=== PATIENT | female | born 1945 | race Caucasian/White ===

== ENCOUNTER 2016-11-04 08:42 | Emergency (ER) | payer OTHER ==
[2016-11-04 08:47] VITALS: BP 166/71
--- NOTE | 2016-11-04 09:19 | PROVIDER DOCUMENTATION ---
HPI-Musculoskeletal Pain/Inj - GENERAL Chief Complaint: Fall Stated Complaint: FALL Time Seen by Provider: 11/04/16 09:04 Source: patient - HX OF PRESENT ILLNESS-MUSKULOSKELTAL Nature of Presenting Problem: 70 y/o WF c/o fall at 0700 today where she was gathering things near her coffee table, and fell backwards, hitting the left ribs on a stool. States they have been painfuls since then. Has ultram at home, but did not take them. Denies difficultly breathing or sob. Denies hitting head or neck, no loc. patient is taking Xarelto. Denies injuries to other areas, ambulatory. Quality of Pain: reports: aching Severity in ED: mild Onset/Duration: 1-3 hours ago Timing: still present Modifying Factors: improves with: nothing (has nto tried anything,), movement ( worse, with deep breath) Any recent injury?: Yes Locality of Occurance: Home Similar Symptoms Previously?: No Recently seen or treated by another doctor?: No Review of Systems - Adult - REVIEW OF SYSTEMS - ADULT Constitutional: reports: no symptoms reported. denies: chills, fatique Eyes: reports: no symptoms reported. denies: decreased vision, blurred vision, double vision, eye pain Ears, Nose, Mouth & Throat: reports: no symptoms reported. denies: ear pain, nose pain, throat pain Cardiovascular: reports: no symptoms reported. denies: chest pain, palpitations Respiratory: reports: no symptoms reported. denies: cough, shortness of breath , wheezing Gastrointestinal: reports: no symptoms reported. denies: abdominal pain, diarrhea, nausea, vomiting Genitourinary: reports: no symptoms reported. denies: incontinence Musculoskeletal: reports: muscle aches, other (chest wall pain). denies: bone pain, back pain, joint pain Integumentary: reports: no symptoms reported. denies: rash Neurological: reports: no symptoms reported. denies: headache/migraines Psychiatric: reports: no symptoms reported Endocrine: reports: no symptoms reported Hematologic/Lymphatic: reports: no symptoms reported Allergic/Immunologic: reports: no symptoms reported All Other Systems: Reviewed and Negative Past History - Adult - PAST MEDICAL HISTORY-ADULT Review of Records: reports: Old Records Reviewed, Nursing Assessment Review, Medications Reviewed Major Childhood Illnesses: reports: denies history Cardiovascular: reports: A-Fib, CAD, HTN, hyperlipidemia Respiratory: reports: sleep apnea Gastrointestinal: reports: GERD Obstetrical/Gynecological: reports: denies history Genitourinary: reports: denies history Musculoskeletal: reports: denies history Neurological: reports: CVA, TIA Psychiatric: reports: depression Endocrine/Immune: reports: Diabetes, thyroid disorder Diabetes Type: Type 2 Diabetes controlled by:: PO Meds Other Conditions: reports: denies history - PRIOR SURGERIES/PROCEDURES Surgical/Procedure History: reports: appendectomy, cholecystectomy, hysterectomy , other (cardiac ablasion) - PRIOR HOSPITALIZATIONS Prior Hospitalizations: reports: for similar symptoms - IMMUNIZATION STATUS Childhood Immunizations: See Nurse Assessment Flu Vaccine: See Nurse Assessment - FAMILY HISTORY Family History: reviewed, not pertinent - SOCIAL HISTORY Smoking: denies Substance Use: none/never Alcohol Use Frequency: never Living Situation: family Physical Exam-Injury Related - Physical Exam-Injury Related Initial Vital Signs Reviewed: Yes General Appearance: appears well, alert, no apparent distress Immobilization?: negative: backboard, C-collar, applied in ED, applied LEDGER POSTER Eyes: PERRL/EOMI, pink conjunctivae Head, Ears, Nose, Mouth & Throat: normocephalic/atraumatic, moist mucous membranes Neck: non-tender, full range of motion, supple, normal inspection. negative: C- spine tenderness, trachial deviation, tender lateral, tender midline Respiratory: chest non-tender, lungs clear, normal breath sounds, no pleuratic chest pain, no respiratory distress, no accessory muscle use. negative: respiratory distress, decreased breath sounds, accessory muscle use, crackles, rales, rhonchi, stridor, wheezing Cardiovascular: normal peripheral pulses, regular rate, rhythm, no edema, no gallop, no JVD, no murmur Chest/Breast: tenderness (left chest wall tenderness, anterior and posterior. No crepitus or step off appreciated) Peripheral Pulses: radial (R): 2+, radial (L): 2+ Abdominal Exam: normal bowel sounds, non tender, soft. negative: tenderness Lymphatic: no adenopathy Back Exam: normal inspection Extremity: normal gait Integumentary: normal color, warm/dry Neurologic: credit collections clerk II-XII nml as tested, no motor/sensory deficits Psych/Mental Status: AL, normal mood/affect, normal thought content, normal thought process, oriented x 3 - [place]ow Coma Score Best Eye Response (Faby): (4) open spontaneously Best Verbal Response (Faby): (5) oriented Best Motor Response ([place]): (6) obeys commands Progress - PLAN OF CARE/RESULTS Progress/Plan/Lab Results: Vital Signs Temp Pulse Resp BP Pulse Ox 11/04/16 08:44 98.6 F 101 H 20 166/71 100 amiodarone Allergy (Mild, Verified 11/04/16 09:23) nervous codeine Allergy (Mild, Verified 11/04/16 09:23) NAUSEA/VOMITING morphine Allergy (Mild, Verified 11/04/16 09:23) nervous "makes me feel bad" ATORVAstatin [Lipitor] 40 mg PO QHS 12/17/13 Cyclosporine 0.05% Oph Drops [Restasis 0.05% Oph Drops] 1 drop BOTH EYES BID Dexlansoprazole [Dexilant] 60 mg PO HS 12/17/13 Duloxetine [Cymbalta] 90 mg PO DAILY 12/17/13 Furosemide [Lasix] 40 mg PO DAILY 12/17/13 Metoprolol [Lopressor] 50 mg PO BID 12/17/13 Potassium Chloride [Klor-Con 10] 10 meq PO DAILY 12/17/13 Pramipexole Di-HCl [Mirapex] 1 mg PO QHS 12/17/13 Rivaroxaban [Xarelto] 15 mg PO HS 12/17/13 Sitagliptin Phosphate [Januvia] 100 mg PO DAILY 12/17/13 Temazepam [Restoril] 15 mg PO QHS 12/17/13 Acetaminophen [Tylenol] 500 mg PO Q6H PRN PRN 12/15/14 Clonazepam 0.5 mg PO BID 12/15/14 Diltiazem HCl [Cardizem Cd] 240 mg PO DAILY 12/15/14 Famotidine [Pepcid] 20 mg PO DAILY 12/15/14 Iron Carbonyl/Vit C/Vit B12/FA [Icar-C Plus] 1 each PO DAILY 12/15/14 Levothyroxine [Synthroid] 50 microgm PO DAILY 12/15/14 Tramadol [Ultram] 50 mg PO BID 12/15/14 Tramadol [Ultram] 50 mg PO Q8HR #14 tablet 11/04/16 Orders Category Date Time Status RIBS UNILAT W/PA CHEST LEFT [RAD] Stat Exams 11/04/16 08:48 Taken Tramadol [Ultram] Med 11/04/16 09:37 Discontinued 50 mg PO NOW ONE Patient states she does not know if she has pain medication at home. Discussed they would not let her fill it if she has an existing that has not run out yet. - XRAY 1 XRAY: Left XRAY Study: Chest, Ribs Impression: Normal (NAD per radiology. I reviewed c Dr. Abraham, we believe there is a rib fx present) Departure - Departure Time of Disposition Order: 09:27 DIAGNOSIS: Closed fracture of rib of left side Qualifiers: Encounter type: initial encounter Rib fracture type: single rib Qualified Code( s): S22.32XA - Fracture of one rib, left side, initial encounter for closed fracture Disposition: HOME 01 Certified Medical Emergency: Emergent Condition: Stable Additional Instructions: Follow up with your primary care physician ED Follow Up Instructions: You have been treated by a care provider in the Emergency Department. These instructions are being provided to you so you can have an understanding of how to care for yourself upon discharge. Upon discharge from the Emergency Department, you are responsible for making arrangements for follow-up care by a physician of your choice. Take all prescribed medications as directed. Return to the Emergency Department immediately for any new or worsening symptoms. You may call the Physician Referral phone number at [phone] to obtain a list of Physicians who are taking new patients. Prescriptions: Tramadol [Ultram] 50 mg PO Q8HR #14 tablet Referrals: Kyle Quintana [Primary Care Provider] - Instructions: Rib Fracture Attestation - Physician/ Mid-level Attestation Patient care was provided by Mid-level provider (LOOM FIXER/PA):: Yes Mid-level provider:: Shira Rivas Mid-level documentation review:: The Mid-level provider documentation, treatment plan and medical decision making was reviewed by the physician who agrees with all treatment and medical decision making by the P.
[2016-11-04] MEDS ORDERED: ULTRAM PO ONE (09:37)
--- NOTE | 2016-11-04 09:45 | Diag Imaging Result Document ---
PROCEDURE NAME: RIBS UNILAT W/PA CHEST LEFT - 11/04/2016 PA CHEST AND LEFT RIB SERIES, FIVE VIEWS: FINDINGS: There is no evidence of a pneumothorax or pleural fluid collection. There is some fibrosis over the left costophrenic angle which was also present on 02/15/2015. The ribs are intact in appearance. IMPRESSION: No evidence of acute disease.
== END 2016-11-04 09:56 | disposition home or self-care (01) ==
LOC: ED 08:42
DX: S22.32XA Fracture of one rib, left side, initial encounter for closed fracture (principal); R07.81 Pleurodynia; M79.1 Myalgia; R07.89 Other chest pain; I48.91 Unspecified atrial fibrillation; I25.10 Atherosclerotic heart disease of native coronary artery without angina pectoris; I10 Essential (primary) hypertension; E78.5 Hyperlipidemia, unspecified; K21.9 Gastro-esophageal reflux disease without esophagitis; E11.9 Type 2 diabetes mellitus without complications; E07.9 Disorder of thyroid, unspecified; F32.9 Major depressive disorder, single episode, unspecified; Z79.01 Long term (current) use of anticoagulants; Z79.899 Other long term (current) drug therapy; Z86.73 Personal history of transient ischemic attack (TIA), and cerebral infarction without residual deficits; W19.XXXA Unspecified fall, initial encounter
CPT/HCPCS: 71101; 99283

== ENCOUNTER 2017-04-04 09:02 | Inpatient (IN) ==
--- NOTE | 2017-04-04 09:49 | EKG Report ---
Test Performed on : 04/04/2017 09:07:35 AM Test Reason : AMS Blood Pressure : / mmHG Vent. Rate : 076 BPM Atrial Rate : 076 BPM P-R Int : 222 ms QRS Dur : 092 ms QT Int : 372 ms P-R-T Axes : 070 035 046 degrees QTc Int : 418 ms Sinus rhythm. with 1st degree AV block. Possible Left atrial enlargement Borderline ECG When compared with ECG of 15-FEB-2015 07:48, No significant change was found Unconfirmed Result
[2017-04-04 09:52] LABS: MANUAL DIFF NEEDED? NO
[2017-04-04 09:54] LABS: BASO% 0.6 % (0.0-0.8); EOS# 0.09 X1000 (0.0-0.7); EOS% 1.7 % (0.0-10.0); HEMATOCRIT 40.5 % (37.0-47.0); HEMOGLOBIN 13.6 g/dL (12.0-16.0); IMM GRAN# 0.02 X1000 (0.0-0.04); IMM GRAN% 0.4 % (0.0-0.5); LYMPH# 1.33 X1000 (1.2-3.4); LYMPH% 25.8 % (20.5-51.1); MCH 32.2 PG (27-31); MCHC 33.6 g/dL (33-37); MCV 95.7 FL (81-99); MONO# 0.66 X1000 (0.11-0.59); MONO% 12.8 % (1.7-9.3); MPV 9.5 FL (7.4-10.4); NEUT% 58.7 % (42.2-75.2); PLT 276 X1000 (130-400); RBC 4.23 XMIL (4.2-5.4)
[2017-04-04 10:03] LABS: INR 0.97; PROTIME 10.2 Seconds (9.2-11.7); PTT 27.1 Seconds (22.0-36.0)
--- NOTE | 2017-04-04 10:10 | Diag Imaging Result Doc PS360 ---
EXAM: HEAD W/O CONTRAST HISTORY: AMS TECHNIQUE: COMPARISON: 06/20/2013 FINDINGS: No parenchymal hemorrhage. No epidural or subdural hematoma. No subarachnoid hemorrhage. No mass identified on this noncontrasted exam. No hydrocephalus. No sinus opacification. IMPRESSION: No hemorrhage. Negative brain CT without contrast. Electronically signed by Oscar Burris 04/04/2017 10:07 AM
--- NOTE | 2017-04-04 10:11 | Diag Imaging Result Doc PS360 ---
CHEST-PORTABLE - 04/04/2017 INDICATION: AMS TECHNIQUE: COMPARISON: 11/04/2016 FINDINGS: The lungs are normally expanded and clear. Heart size and mediastinal contours are normal. No pneumothorax or pleural effusion. IMPRESSION: Negative exam. Electronically signed by Ezekiel Antunez 04/04/2017 10:09 AM
[2017-04-04 10:24] LABS: AGAP 14; ALBUMIN 4.1 g/dL (3.5-5.0); ALKALINE PHOSPHATASE 195 U/L (32-104); BUN 17 mg/dL (8-22); CALCIUM 9.4 mg/dL (8.8-10.2); CHLORIDE 99 mmol/L (98-107); CK PROFILE 58 U/L (24-173); COSMO 280; MAGNESIUM 1.9 mg/dL (1.5-2.7); POTASSIUM 4.1 mmol/L (3.5-5.1); SODIUM 138 mmol/L (136-145); TCO2 25 mmol/L (25-35); TOTAL PROTEIN 7.2 g/dL (6.3-8.3)
[2017-04-04 10:30] LABS: GOT 948 U/L (10-30); GPT 927 U/L (10-36)
[2017-04-04 10:35] LABS: URINE CULTURE NEEDED? NO; URINE MICRO REVIEW NEEDED? NO; URINE SOURCE CLEAN CATCH
[2017-04-04 10:41] LABS: BILIRUBIN URINE NEGATIVE (NEGATIVE); BLOOD URINE NEGATIVE (NEGATIVE); COLOR YELLOW; GLUCOSE URINE NEGATIVE (NEGATIVE); LEUKOCYTES URINE NEGATIVE (NEGATIVE); NITRITE URINE NEGATIVE (NEGATIVE); PROTEIN URINE NEGATIVE (NEGATIVE); SP GRAVITY URINE 1.012; TURBIDITY URINE CLEAR (CLEAR); UR EPITHELIAL CELLS <10 /HPF (<10); URINE BACTERIA NEGATIVE /HPF; URINE RBC <10 /HPF (<10); URINE WBC <10 /HPF (<10); UROBILINOGEN URINE NORMAL (NORMAL)
[2017-04-04 11:18] LABS: UR AMPHETAMINES QUAL NONE DETECTED (NONE DETECT); UR BARBITUATES QUAL NONE DETECTED (NONE DETECT); UR BENZODIAZEPIN QUAL PRESUMPTIVE POSITIVE (NONE DETECT); UR CANNABINOIDS QUAL NONE DETECTED (NONE DETECT); UR COCAINE QUAL NONE DETECTED (NONE DETECT); UR METHADONE QUAL NONE DETECTED (NONE DETECT); UR OPIATES QUAL PRESUMPTIVE POSITIVE (NONE DETECT); UR OXYCODONE QUAL NONE DETECTED (NONE DETECT); UR PCP QUAL NONE DETECTED (NONE DETECT)
--- NOTE | 2017-04-04 12:40 | Diag Imaging Result Doc PS360 ---
EXAM: US GB < RUQ (LIMITED) HISTORY: Abnormal LFTS TECHNIQUE: COMPARISON: None. FINDINGS: Normal pancreas. No aneurysmal dilatation to the proximal and mid aorta. Distal aorta is obscured. Normal inferior vena cava. No focal hepatic abnormality. No ascites in the right upper quadrant. The common bile duct is dilated to over 1 cm. Gallbladder is not present. Normal right kidney. No hydronephrosis. IMPRESSION: 1.Cholecystectomy 2.Questionable mild fatty infiltration of the liver Electronically signed by Oscar Burris 04/04/2017 12:37 PM
--- NOTE | 2017-04-04 13:24 | PROVIDER DOCUMENTATION ---
This chart was entered by Breanne Alatorre Scribe, acting as scribe for Reggie Abraham MD. HPI-General Adult - General Chief Complaint: Shortness of Breath Stated Complaint: SOB/BACK PAIN Time Seen by Provider: 04/04/17 09:12 Source: patient Allergies/Adverse Reactions: Patient Allergies Allergy/AdvReac Type Severity Reaction Status Date / Time amiodarone Allergy Mild nervous Verified 04/04/17 09:38 codeine Allergy Mild NAUSEA/VOMI Verified 04/04/17 09:38 TING morphine Allergy Mild nervous Verified 04/04/17 09:38 Home Medications: Home Medication List Medication Instructions Recorded Confirmed Last Taken Type ATORVAstatin [Lipitor] 40 mg PO QHS 12/17/13 04/04/17 1 Day Ago History Dexlansoprazole [Dexilant] 60 mg PO HS 12/17/13 04/04/17 1 Day Ago History Duloxetine [Cymbalta] 90 mg PO DAILY 12/17/13 04/04/17 04/04/17 History Furosemide [Lasix] 40 mg PO BID 12/17/13 04/04/17 04/04/17 History Metoprolol [Lopressor] 50 mg PO BID 12/17/13 04/04/17 04/04/17 History Potassium Chloride [Klor-Con 10] 10 meq PO DAILY 12/17/13 04/04/17 04/04/17 History Rivaroxaban [Xarelto] 15 mg PO HS 12/17/13 04/04/17 1 Day Ago History Sitagliptin Phosphate [Januvia] 100 mg PO DAILY 12/17/13 04/04/17 04/04/17 History Temazepam [Restoril] 15 mg PO QHS 12/17/13 04/04/17 2 Days Ago History Acetaminophen [Tylenol] 500 mg PO Q6H PRN PRN 12/15/14 04/04/17 02/15/15 History Clonazepam 0.5 mg PO BID 12/15/14 04/04/17 2 Days Ago History Diltiazem HCl [Cardizem Cd] 240 mg PO HS 12/15/14 04/04/17 1 Day Ago History Famotidine [Pepcid] 20 mg PO DAILY 12/15/14 04/04/17 04/04/17 History Iron Carbonyl/Vit C/Vit B12/FA 1 each PO DAILY 12/15/14 04/04/17 04/04/17 History [Icar-C Plus] Levothyroxine [Synthroid] 50 microgm PO DAILY 12/15/14 04/04/17 04/04/17 History Tramadol [Ultram] 50 mg PO Q8HR #14 tablet 11/04/16 04/04/17 2 Days Ago Rx - History of Present Illness -Gen Adult Nature of Presenting Problems: 71 yo F presents to the ER with a variety of vague complains. Pt had a tooth extracted x2 days ago, states he believes [place] is making pt loopy. Pt complains of chronic back pain, SOB, weakness, having trouble standing, and being confused. Pt is not able to answer questions very clearly. Also complains of chest pressure but states that is chronic as well. States they believe she is getting a dry socket, called Dr. Vianey Prasad (oral surgeon) and he advised her to come to the ER. states she acts like this when her potassium gets low. Onset/Duration: reports: 2 days ago Associated Symptoms: reports: back/neck pain, chest pain, shortness of breath, weakness Review of Systems - Adult - REVIEW OF SYSTEMS - ADULT Constitutional: denies: chills, fever Eyes: reports: no symptoms reported Ears, Nose, Mouth & Throat: reports: no symptoms reported Cardiovascular: reports: chest pain. denies: palpitations Respiratory: reports: cough, shortness of breath. denies: wheezing Gastrointestinal: denies: abdominal pain, diarrhea, nausea, vomiting Genitourinary: reports: no symptoms reported Musculoskeletal: reports: no symptoms reported Integumentary: reports: no symptoms reported Neurological: reports: no symptoms reported Psychiatric: reports: no symptoms reported Endocrine: reports: no symptoms reported Hematologic/Lymphatic: reports: no symptoms reported Allergic/Immunologic: reports: no symptoms reported All Other Systems: Reviewed and Negative Past History - Adult - PAST MEDICAL HISTORY-ADULT Review of Records: reports: Nursing Assessment Review, Medications Reviewed Cardiovascular: reports: A-Fib, CAD, HTN, hyperlipidemia Respiratory: reports: sleep apnea Gastrointestinal: reports: GERD Neurological: reports: CVA, TIA Psychiatric: reports: depression Endocrine/Immune: reports: Diabetes, thyroid disorder - PRIOR SURGERIES/PROCEDURES Surgical/Procedure History: reports: appendectomy, cholecystectomy, hysterectomy , other (cardiac ablasion) - PRIOR HOSPITALIZATIONS Prior Hospitalizations: reports: for similar symptoms - IMMUNIZATION STATUS Childhood Immunizations: See Nurse Assessment Flu Vaccine: See Nurse Assessment Physical Exam-General - PHYSICAL EXAM-ADULT Initial Vital Signs Reviewed: Yes - CONSTITUTIONAL General Appearance: alert, slow to respond, other (confused) - EYES Eyes: PERRL/EOMI, pink conjunctivae - HEAD, EARS, NOSE, MOUTH & THROAT HENMT: normocephalic/atraumatic, normal ENT inspection - NECK Neck: non-tender, full range of motion, supple, normal inspection - RESPIRATORY Respiratory: no respiratory distress, no accessory muscle use - CARDIOVASCULAR Cardiovascular: normal peripheral pulses, regular rate, rhythm - GASTROINTESTINAL (ABDOMEN) Abdominal Exam: normal bowel sounds, non tender, soft - MUSCULOSKELETAL Back Exam: no CVA tenderness, no vertebral tenderness Extremity: normal range of motion, non-tender, normal gait, normal inspection - SKIN Integumentary: normal color, warm/dry - NEUROLOGIC Neurologic: grossly normal, no motor/sensory deficits - PSYCHIATRIC Psych/Mental Status: normal mood/affect, normal thought content, normal thought process, oriented x 3 Progress - PLAN OF CARE/RESULTS Progress/Plan/Lab Results: Vital Signs - 8 hr 04/04/17 09:05 Temperature 98.0 F Pulse Rate 81 Respiratory Rate 20 Blood Pressure 161/72 O2 Sat by Pulse Oximetry 100 Orders Category Date Time Status Cardiac Monitoring DIRECTED Care 04/04/17 09:35 Active Finger Stick Blood Sugar (ED) DIRECTED Care 04/04/17 09:35 Active Saline Loc NOW Care 04/04/17 09:35 Active CHEST-PORTABLE [RAD] Stat Exams 04/04/17 09:35 Ordered HEAD W/O CONTRAST [CT] Stat Exams 04/04/17 09:35 Ordered ALCOHOL BLOOD Stat Lab 04/04/17 09:35 Uncollected CBC WITH ELECTRONIC DIFF [HEME] Stat Lab 04/04/17 09:35 Uncollected CK PROFILE [SP CHEM] Stat Lab 04/04/17 09:35 Uncollected COMPREHENSIVE METABOLIC PANEL [CHEM] Stat Lab 04/04/17 09:35 Uncollected LACTATE, PLASMA [CHEM] Stat Lab 04/04/17 09:35 Uncollected MAGNESIUM [CHEM] Stat Lab 04/04/17 09:34 Uncollected PRO B-NATRIURETIC PEPTIDE Stat Lab 04/04/17 09:34 Uncollected PROTIME WITH INR [COAG] Stat Lab 04/04/17 09:35 Uncollected PTT [COAG] Stat Lab 04/04/17 09:35 Uncollected TROPONIN T Stat Lab 04/04/17 09:35 Uncollected URINALYSIS W/POSS RFLX CULT-1 [URINALYSIS] Stat Lab 04/04/17 09:35 Uncollected URINE DRUG SCREEN Stat Lab 04/04/17 09:35 Uncollected Pulse Oximetry Stat Oth 04/04/17 09:35 Active EKG [EKG] Stat Ther 04/04/17 09:35 Ordered Result Diagrams: 04/04/17 09:03 04/04/17 09:03 - EKG 1 Time of EKG reading by physician:: :07 EKG Read and Signed by:: Reggie Abraham EKG Interpretation (*Must complete 3 of following elements*): Normal (borderline ) Rate: 76 Rhythm: sinus rhythm with 1st degree AV block [place]: normal QRS: normal [place] Interval: normal ST Wave: normal Comments: possible L atrial enlargement - XRAY 1 XRAY Study: Chest Impression: Normal (negative, per radiologist) - CT/MRI 1 CT Study: Head Impression: Normal (no hemorrhage, negative brain CT without contrast, per radiologist) - ULTRASOUND (By Radiology) 1 US Study: Abdomen (RUQ) Impression: See EMR Report (cholecystectomy, questionable mild fatty infiltration of the liver, per radiologist) - CONSULTS/PCP/HOSPITALIST Notification #1 *Consult/PCP/Hospitalist*: Jeanette/Dr. Solares Time Discussed: 13:11 Consult Disposition: Admit Departure - Departure Date of Disposition Decision: 04/04/17 Time of Disposition Decision: 13:12 DIAGNOSIS: Altered mental status, Chest pain, Elevated LFTs Disposition: ADMITTED INPATIENT 09 Certified Medical Emergency: Emergent Condition: Stable Referrals and Follow-Ups: Kyle Quintana [Primary Care Provider] - - Critical Care Note This patient required my direct & personal management of CC.: No This chart was documented by the indicated scribe, (Breanne Alatorre Scribe) and accurately reflects the services I performed and decisions made by me, Reggie Abraham MD, as attested by the provider's signature.
--- NOTE | 2017-04-04 14:45 | HISTORY AND PHYSICAL ---
This is a 71-year-old. Apparently she had a tooth extraction by Dr. Cardoza on Friday, today is Friday. Yesterday seemed to be doing well. Was working quite a bit but has not slept well last couple nights. She is taking I think [place] for pain and her feels like maybe the [place] was keeping her up. Today she just feels bad. She feels nauseated. She has a little bit of epigastric discomfort but she says that she always has some of these pains, they may be just a little more pronounced, that she hurts in the back of her neck, she hurts in her knees and ankles. She feels tired. There is some mild nausea. It seemed that her speech is a little slurred but according to the this is because of her partial glossectomy. She feels like she may have had subjective fever. She does feel like she is burning up. No focal neurologic deficits. No history of recent trauma to her head. No tonic-clonic activity reported. No real change in her bowels although she said about a week ago maybe she threw up some blood. Apparently she does have a history of an ulcer. PAST MEDICAL HISTORY: 1. Atrial fibrillation. She has had AV ablation. She is on chronic anticoagulant. She has not had a pacemaker. 2. Hypertension well controlled. 3. Diabetes mellitus type 2 which she says is well controlled. 4. Hypercholesterolemia, well controlled. 5. History of gastric ulcer in the past and apparent she has have H. pylori positive. Also has a history of a hiatal hernia. 6. She has osteoarthritis. SURGICAL HISTORY: 1. Status post ablation on AV node in 2013. 2. Partial glossectomy. 3. She has had a hysterectomy. 4. She has had partial bowel resection. 5. She has had bladder repair. 6. She has had sinus surgery 5 times I believe. ALLERGIES: Allergic to amiodarone, codeine and morphine. Codeine makes her nauseated. Morphine I think makes her confused. FAMILY HISTORY: Noncontributory. SOCIAL HISTORY: Did not explore whether she was a smoker or drinker. Her is at bedside. REVIEW OF SYMPTOMS: She did not report any weight gain or loss. She feels like she has subjective fever. HEENT: Unremarkable other than posterior neck and head pain which she has had before. She did describe a numbness in her hands and her feet more prominent on the right. Seemed to be some numbness around her face which came on this morning and that is better, has resolved. GI/: Questionable, reported history of a little blood and some nausea about a week ago, week and a half ago. She has had nausea. No gross hematuria, dysuria. Neurologic: No focal complaints. Just the numbness. EXAM: Today in the emergency room afebrile. Temp 98 degrees, pulse 82, respirations 18. Blood pressure 180/84. HEENT: The pupils are equal, round. Lungs: Clear in all lung dennis. Cardiovascular: Regular rhythm and rate without murmur or S3. Abdomen: Soft. Skin: Warm and dry. I did not appreciate any focal motor deficit or sensory deficit. Cranial nerves 2-12 intact. She does have a partial glossectomy appreciated, you can see where her tooth was extracted on the right side lower molar. O2 saturation was 98%. Height 5 feet 1 inch, weight 170 pounds. LABORATORY DATA: White count 5160, hematocrit 40, platelet count 276,000. Sodium 138, potassium 4.1, chloride 99, BUN 17, creatinine 0.9. Glucose 140. AST was 948, ALT 927, alkaline phosphatase 195. Pro BMP 356. Ammonia level was 41. Pro time 10. PTT 27. Urine drug screen positive for opiates, presumptive positive, presumptive positive for benzodiazepines. Urinalysis unremarkable. CT of her head without contrast. No hemorrhage. Negative brain CT. The chest x- ray, negative exam. Abdominal ultrasound, status post cholecystectomy, questionable mild fatty liver infiltration. ASSESSMENT AND PLAN: 1. Altered mental status, metabolic encephalopathy. I suspect this is medication. I suspect the [place] plus the benzodiazepines. We will hold those. I am a little afraid to hold the clonazepam because she has been on it for a while but we will certainly hold the [place] and see how we do. She is also on Ultram. She is also on Cymbalta and plus the [place] so she may have a mild serotonin like syndrome. We will hold the [place] and see how we do. I may reduce the Cymbalta down to 30 mg for now and we will stop the tramadol. 2. History of atrial fib, rate is controlled. Continue her present medication. She is on Xarelto 15 mg at bedtime. 3. Epigastric pain. History of peptic ulcer. Aware. I will put her on IV Protonix just for tonight 40 mg IV q.12 hours. 4. Diabetes mellitus type 2. We will follow pattern sugars and put her on a sliding scale. 5. Hypertension. 6. Hypercholesterolemia. We will check thyroid, B12 and folate. Recheck her electrolytes again in the morning. cc: Rigo Solares MD
[2017-04-04] MEDS: NS 1,000 ML IV SCH (18:54)
[2017-04-04] MEDS: LOPRESSOR PO SCH (20:05)
[2017-04-04] MEDS: LASIX PO SCH (20:06)
[2017-04-04] MEDS: KLONOPIN PO SCH (20:06)
[2017-04-04] MEDS ORDERED: CARDIZEM CD PO SCH (21:00)
[2017-04-04] MEDS ORDERED: DEXILANT PO SCH (21:00)
[2017-04-04] MEDS ORDERED: XARELTO PO SCH (21:00)
[2017-04-04] MEDS ORDERED: RESTORIL PO SCH (21:00)
[2017-04-05] MEDS: NS 1,000 ML IV SCH (05:31)
[2017-04-05 05:42] LABS: MANUAL DIFF NEEDED? NO
[2017-04-05 05:51] LABS: BASO% 0.5 % (0.0-0.8); EOS# 0.14 X1000 (0.0-0.7); EOS% 2.3 % (0.0-10.0); HEMOGLOBIN 14.7 g/dL (12.0-16.0); LYMPH# 1.41 X1000 (1.2-3.4); LYMPH% 23.2 % (20.5-51.1); MCH 32.4 PG (27-31); MCHC 34.2 g/dL (33-37); MCV 94.7 FL (81-99); MONO# 0.58 X1000 (0.11-0.59); MONO% 9.5 % (1.7-9.3); MPV 9.7 FL (7.4-10.4); NEUT% 64.5 % (42.2-75.2); PLT 282 X1000 (130-400); RBC 4.54 XMIL (4.2-5.4)
[2017-04-05 06:14] LABS: INR 1.07; PROTIME 11.3 Seconds (9.2-11.7); PTT 32.4 Seconds (22.0-36.0)
[2017-04-05 06:17] LABS: AGAP 16; ALKALINE PHOSPHATASE 231 U/L (32-104); BUN 14 mg/dL (8-22); CALCIUM 9.3 mg/dL (8.8-10.2); CHLORIDE 100 mmol/L (98-107); COSMO 285; GOT 381 U/L (10-30); MAGNESIUM 2.1 mg/dL (1.5-2.7); POTASSIUM 3.9 mmol/L (3.5-5.1); SODIUM 142 mmol/L (136-145); TCO2 26 mmol/L (25-35); TOTAL BILIRUBIN 0.67 mg/dL (0.20-1.00); TOTAL PROTEIN 7.3 g/dL (6.3-8.3)
[2017-04-05 06:22] LABS: GPT 735 U/L (10-36)
[2017-04-05] MEDS ORDERED: SYNTHROID PO SCH (07:00)
[2017-04-05 07:55] VITALS: BP 133/62
[2017-04-05 08:43] LABS: HEPATITIS PROFILE ACUTE SEE COMMENTS
[2017-04-05] MEDS ORDERED: JANUVIA PO SCH (09:00)
[2017-04-05] MEDS ORDERED: ICAR-C PLUS PO SCH (09:00)
[2017-04-05] MEDS ORDERED: KLOR-CON PO SCH (09:00)
--- NOTE | 2017-04-05 09:01 | Diag Imaging Result Doc PS360 ---
EXAM: CHEST-2 VIEWS HISTORY: ams TECHNIQUE: COMPARISON: 04/04/2017 FINDINGS: The lungs are well expanded. The heart is not enlarged. The vessels are not distended. There are no infiltrates. No pleural effusions. IMPRESSION: No acute abnormality. Electronically signed by Oscar Burris 04/05/2017 8:59 AM
[2017-04-05] MEDS: LOPRESSOR PO SCH (10:11)
[2017-04-05] MEDS: LASIX PO SCH (10:11)
[2017-04-05] MEDS: KLONOPIN PO SCH (10:16)
--- NOTE | 2017-04-05 10:29 | DISCHARGE SUMMARY ---
ADMISSION DATE: 04/04/2017 DISCHARGE DATE: 04/05/2017 HISTORY OF PRESENT ILLNESS: Apparently had a tooth extraction per Dr. Syed Cardoza about 4 days ago. That happened on Friday. She presented on Friday. Seemed to be doing well. The day after was working quite a bit, but then she has not slept in the last couple nights and today, she had confusion a little slow of speech. She has been taking the [place] regularly as she did feel nauseated and a little bit of epigastric discomfort and presented to the emergency room. Her speech was slurred, but she has had a partial glossectomy. seemed to think it was not unusual. PAST MEDICAL HISTORY: 1. Atrial fibrillation, status post AV ablation. Chronic anticoagulant. She has not had a pacemaker. 2. Hypertension, well controlled. 3. Diabetes mellitus type 2. Well controlled. 4. Hypercholesterolemia. 5. Gastric ulcer in the past. Apparently, she has H. pylori positive. 6. Also, history of hiatal hernia. 7. History of osteoarthritis. SURGICAL HISTORY: 1. Status post ablation AV node 2013. 2. Partial glossectomy. 3. Has had a hysterectomy. 4. Partial bowel resection. 5. Bladder repair. 6. Had sinus surgery 5 times I believe. HOSPITAL COURSE: The patient admitted, given IV fluids. I did stop some of her medicines. She is on Cymbalta plus [place], and apparently tramadol as well and I wondered if there was a little bit of a serotonin effect from that. She does take Klonopin. Continued her Klonopin. Continued Dexilant 60 mg daily, Cardizem CD 240 mg at bedtime, Lasix 40 mg b.i.d., Icar-C Plus 1 a day. Synthroid 50 mcg a day. Lopressor 50 mg a day. Klor-Con 10 mEq daily. Xarelto 50 mg at bedtime. Januvia 200 mg daily, and I will let her have her Restoril. She seemed to be doing much better the following morning, and wanted to go home. I will have her follow up with Dr. Kyle Quintana. cc: MD Kyle Giang MD Shi-Chi Cheng, MD
--- NOTE | 2017-04-07 05:52 | EKG Report ---
Test Performed on : 04/05/2017 06:03:17 AM Test Reason : chest pain Blood Pressure : / mmHG Vent. Rate : 063 BPM Atrial Rate : 063 BPM P-R Int : 202 ms QRS Dur : 080 ms QT Int : 404 ms P-R-T Axes : 073 050 069 degrees QTc Int : 413 ms Normal sinus rhythm. Normal ECG When compared with ECG of 04-APR-2017 09:07, (Unconfirmed) No significant change was found Confirmed by Ankit RUBIO, Dhiraj Cabrera ([id number]) on 04/08/2017 8:25:46 AM
== END 2017-04-05 10:30 | disposition home or self-care (01) ==
LOC: ED 09:02 → SUATTDRO 16:19 → 4N 16:19
PROVIDERS: ATTEND Emergency Medicine